=== PATIENT | male | born 1965 | race Caucasian/White ===

== ENCOUNTER → 2018-06-28 | Outpatient (CLI) | payer BC, OTHER | LOC: MRI 07:25 | DX: S43.492A Other sprain of left shoulder joint, initial encounter (principal); M19.012 Primary osteoarthritis, left shoulder; M25.812 Other specified joint disorders, left shoulder; X58.XXXA Exposure to other specified factors, initial encounter; Y93.89 Activity, other specified; Y92.89 Other specified places as the place of occurrence of the external cause; Y99.8 Other external cause status ==

== ENCOUNTER → 2018-08-31 | Outpatient (CLI) | payer BC ==
--- NOTE | 2018-08-31 16:14 | EXE ---
[facility] [place] [email or web address] [address] STRESS ECHOCARDIOGRAM Name: RUSSEL HUDSON Room #: REG [facility]#: [id number] ������������� Admission: 08/31/18 ������������� Attend Phys: Jagdish Tang MD Discharge: ��� ������������� ��� Date of : 61 Date of Service: 08/31/18 1614 �� Report #: [id number] �������� ��������������������������������������������[id number] THIS REPORT FOR: //name// APPROVED REPORT Study performed: 08/31/2018 11:10:10 Exam: Stress Echocardiogram Indication: Chest pain Patient Location: Out-Patient Stress Nurse: Ayah Bernal RN Ht: 6 ft 3 in HR: 55 bpm BP: 128/76 mmHg Rhythm: NSR Medical History Medications: Listed on worksheet Allergies: No known drug allergies Cardiac Risk Factors: Hyperlipidemia, FHX of CAD Procedure The patient underwent an Exercise Stress Test using the Jeffrey Protocol. Blood pressure, heart rate, and EKG were monitored. An Echocardiogram was performed by pv design and installation technician in four stages in quad fashion. At peak stress, four selected images were obtained and placed side by side with resting images for comparison. Stress Test Details Stress Test: Exercise stress testing was performed using a Jeffrey protocol. HR Resting HR: 55 bpm Max Heart Rate (APMHR): 166 bpm Max HR Achieved: 155 bpm Target HR (85% APMHR): 141 bpm % of APMHR: 93 Recovery HR: 78 bpm HR response to stress: Normal HR response to stress BP Resting BP: 128/76 mmHg Max BP: 178/80 mmHg Recovery BP: 154/78 mmHg BP response to stress: Normal blood pressure response to stress. ECG [facility] [address] [address] STRESS ECHOCARDIOGRAM Name: RUSSEL HUDSON Litzy Room #: REG [facility]#: [id number] ������������� Admission: 08/31/18 ������������� Attend Phys: Jagdish Tang MD Discharge: ��� ������������� ��� Date of : 61 Date of Service: 08/31/18 1614 �� Report #: [id number] �������� ��������������������������������������������[id number] Resting ECG: Clear Stress ECG: Sinus Tachycardia ST Change: Upsloping ST depression Arrhythmia: VPC's Recovery ECG: Sinus Rhythm Clinical Reason for Termination: Maximal effort Exercise duration: 11 min sec Highest Stage Achieved: Stage 4: 4.2 mph at 16% grade. Exercise capacity: 13.70 METs Stress ECG Conclusion 1. Subjectively negative for ischemia 2. Electrocardiographically abnormal with J-point depression rapidly upsloping ST segments suggestive but not diagnostic of ischemia 3. Satisfactory functional capacity Pre-Stress Echo The resting Echocardiogram showed normal left ventricular contractility with an estimated Ejection Fraction of about 55-60%. Mild MR, Mild AI, trivial TR. Post-Stress Echo The stress Echocardiogram showed normal left ventricular contractility with an estimated Ejection Fraction of about 60-65%. Normal augmentation of wall motion in all segments on post stress images. Conclusion Clinical Response: Non-ischemic Exercise Capacity: satisfactory Stress ECG Response: Equivocal Stress Echo Images: Non-ischemic 1. Low risk study based on no development of wall motion abnormalities with exertion Other Information Study Quality: Good <Conclusion> [facility] [address] [address] STRESS ECHOCARDIOGRAM Name: RUSSEL HUDSON Room #: REG [facility]#: [id number] ������������� Admission: 08/31/18 ������������� Attend Phys: Jagdish Tang MD Discharge: ��� ������������� ��� Date of : 61 Date of Service: 08/31/181613 �� Report #: [id number] �������� ��������������������������������������������[id number] 1. Low risk study based on no development of wall motion abnormalities with exertion ��������������������������������������������� <ELECTRONICALLY SIGNED> ���������������������������������������� By: Eren Ornelas MD ��������������������������������������������� 08/31/18 1614 13 13 Eren Ornelas MD /INF
== END ==
LOC: CV 10:36
DX: I20.9 Angina pectoris, unspecified (principal)